=== PATIENT | male | born 1965 | race Caucasian/White ===

== ENCOUNTER 2018-05-30 11:02 | Day surgery (SDC) | payer BC ==
[~2018-05-30] VITALS: Ht 177.8 cm; Wt 98.9 kg
[2018-05-30] MEDS ORDERED: PROBIOTIC1 EAC5 PO (11:19)
[2018-05-30] MEDS ORDERED: ONE DAILY MULT1 EAC1 PO (11:19)
[2018-05-30] MEDS ORDERED: TURMERIC500 M2 PO (11:19)
[2018-05-30] MEDS ORDERED: VITAMIN C500 M1 PO (11:20)
[2018-05-30] MEDS ORDERED: FLAXSEED OIL1000 M1 PO (11:20)
--- NOTE | 2018-05-30 12:40 | NUR ---
05/30/18 1240 Asher,Sharmaine 1236 PT ARRIVED TO PACU ON 3L VIA NC. PT WAKES TO VERBAL STIMULI AND IS REORINTED TO PACU. RESP EVEN AND UNLABORED.
--- NOTE | 2018-05-30 15:31 | OR ---
[facility] [address] [place], [place] [address] Signed DATE OF OPERATION: 05/30/2018 SURGEON: Jeanette Kincaid MD PREOPERATIVE DIAGNOSIS: Colon screening. POSTOPERATIVE DIAGNOSIS: Small polyp at 20 cm, excised. PROCEDURE: Total colonoscopy to cecum with cold snare polypectomy x1. ANESTHESIA: Intravenous sedation, fentanyl 100 mcg, Versed 5 mg. INDICATION: This 52-year-old white man is a patient Dr. Lester Leiva and is here for a screening colonoscopy. He has no symptoms of bleeding, diarrhea, or constipation and no family history of colon cancer. He is at this time to undergo colonoscopy. He understands the risks of bleeding, infection, and perforation. FINDINGS: The prep was good. Complete colonoscopy was undertaken to the cecum. He had a small polyp at 20 cm, which was excised completely. The remaining colon and rectum were normal. DESCRIPTION OF PROCEDURE: The patient was brought to endoscopy suite and placed in lateral decubitus position given intravenous sedation to the point of slurred speech and nystagmus. Digital rectal examination was normal. An Olympus video colonoscope was passed in the rectum and manipulated throughout the colon ultimately intubating the cecum itself. The ileocecal valve and appendiceal orifice area was normal. The scope was withdrawn from that point and careful inspection upon withdrawal of scope showed no sign of abnormality until approximately 20 cm from the anal verge where a small sessile polyp was noted. This may be hyperplastic. It is uncertain. The lesion was excised with cold snare polypectomy technique. Further withdrawal of scope showed no other abnormality. Retroflexed view showed prominent hemorrhoidal vessels, but no actual hemorrhoids. The patient was then taken to recovery Electronically Signed By: JEANETTE KINCAID MD 05/30/18 1531 PATIENT NAME: EUSEBIA RHOADES OPERATIVE REPORT DATE OF : 63 REPORT #: [id number] PHYSICIAN: JEANETTE KINCAID MD PCP: LESTER LEIVA MD REPORT IS CONFIDENTIAL AND NOT TO BE RELEASED WITHOUT AUTHORIZATION [facility] [address], [place] [address] Signed room in good condition having suffered no complications. CONCLUDING DIAGNOSIS: Small polyp at 20 cm. PLAN: If the polyp is adenomatous, would recommend repeat colonoscopy in 5 years, if hyperplastic 10 years, sooner in either case if symptoms should develop. MD DERICK Sampson/LANEL /[id number] cc: Lester Leiva MD Copies: LESTER LEIVA MD ~ Electronically Signed By: JEANETTE KINCAID MD 05/30/18 1531 PATIENT NAME: EUSEBIA RHOADES OPERATIVE REPORT DATE OF : 63 REPORT #: [id number] PHYSICIAN: JEANETTE KINCAID MD PCP: LESTER LEIVA MD REPORT IS CONFIDENTIAL AND NOT TO BE RELEASED WITHOUT AUTHORIZATION
== END 2018-05-30 13:25 | disposition home or self-care (01) ==
LOC: OPS 11:02 → DS 11:02 → OPS 13:25
PROVIDERS: Surgery
PROC: 0DBE8ZZ Excision of Large Intestine, Via Natural or Artificial Opening Endoscopic (ICD-10-PCS; principal; 2018-05-30 12:00)
DX: Z12.11 Encounter for screening for malignant neoplasm of colon (principal); K63.5 Polyp of colon; Z90.49 Acquired absence of other specified parts of digestive tract
CPT/HCPCS: 99153; G0500; J2250; J3010; J7120

== ENCOUNTER 2019-10-30 04:51 | Emergency (ER) | payer BC ==
[~2019-10-30] VITALS: Ht 177.8 cm; Wt 95.2 kg
[~2019-10-30 04:51] MED LIST: FLAXSEED OIL1000 M1 PO; ONE DAILY MULT1 EAC1 PO; PROBIOTIC1 EAC5 PO; TURMERIC500 M2 PO; VITAMIN C500 M1 PO
[2019-10-30] MEDS ORDERED: ZOFRAN4 MG PO (06:53)
== END 2019-10-30 07:11 | disposition home or self-care (01) ==
LOC: ED 04:51
DX: K29.00 Acute gastritis without bleeding (principal); Z87.891 Personal history of nicotine dependence; Z79.899 Other long term (current) drug therapy
CPT/HCPCS: 80053; 83690; 85025; 96361; 96374; 96375; 99284-25; J1170; J2405; J7030

== ENCOUNTER 2021-06-18 08:38 | Emergency (ER) | payer BC ==
[~2021-06-18] VITALS: Ht 177.8 cm; Wt 95.2 kg
[~2021-06-18 08:38] MED LIST changes: +ZOFRAN4 MG PO
--- NOTE | 2021-06-19 06:58 | EKG ---
[facility] [address] [facility] [place], [place] [address] Signed Normal sinus rhythm Normal ECG No previous ECGs available Confirmed by INGA REN MD ([id number]) on 06/19/2021 6:58:43 AM Electronically Signed By: INGA REN MD 06/19/21 0658 PATIENT NAME: EUSEBIA RHOADES Electrocardiogram DATE OF : 63 PHYSICIAN: INGA REN MD REPORT #: [id number] REPORT IS CONFIDENTIAL AND NOT TO BE RELEASED WITHOUT AUTHORIZATION
== END 2021-06-18 11:25 | disposition home or self-care (01) ==
LOC: ED 08:38
DX: R07.9 Chest pain, unspecified (principal); Z79.899 Other long term (current) drug therapy
CPT/HCPCS: 36415; 71045; 80053; 80061; 83036; 83735; 84484; 85025; 85379; 93005; 93010; 99285-25